=== PATIENT | male | born 1975 | race Caucasian/White ===

== ENCOUNTER 2016-10-19 00:57 | Emergency (ER) | payer BC ==
[2016-10-19] MEDS ORDERED: ASPIRIN 81 MG TABLET, CHEWABLE PO ONE (01:27)
--- NOTE | 2016-10-19 01:30 | ER Document Report ---
ED Medical Screen (RME) - General Stated Complaint: CHEST PAIN Notes: 41 year old male that comes to the ED for chief complaint of chest pain, started 21:30 while preparing to visit in hospital, chest pain in left side , radiates to left shoulder, denies shortness of breath or N/V. Still present but feels improved. Took [facility] at home. Former smoker. Denies family history of MS. PMH of anxiety, medicated. TRAVEL OUTSIDE OF THE [place] IN LAST 30 DAYS: No - Related Data Allergies/Adverse Reactions: No Known Allergies Allergy (Verified 10/19/16 01:26) Past Medical History Psychiatric Medical History: Reports: Hx Anxiety, Hx Post Traumatic Stress Disorder Past Surgical History: Reports: Hx Oral Surgery - [place] teeth, Hx Tonsillectomy - Immunizations Hx Diphtheria, Pertussis, Tetanus Vaccination: Yes Physical Exam - Vital signs Vitals: Temp Pulse Resp BP Pulse Ox 98.3 F 89 16 134/89 H 96 10/19/16 01:19 10/19/16 01:19 10/19/16 01:19 10/19/16 01:19 10/19/16 01:19 - Respiratory Respiratory status: No respiratory distress Chest status: Nontender. No: Tender Breath sounds: Normal - Abdominal Inspection: Normal Tenderness: Nontender Course - Vital Signs Vital signs: Temp Pulse Resp BP Pulse Ox 98.3 F 89 16 134/89 H 96 10/19/16 01:19 10/19/16 01:19 10/19/16 01:19 10/19/16 01:19 10/19/16 01:19
[2016-10-19 02:19] LABS: ABSOLUTE MONOCYTES (AUTO) 2.2 10^3/uL (0.1-1.4); ABSOLUTE NEUT (AUTO) 15.5 10^3/uL (1.7-8.2); BASOPHILS % (AUTO) 0.2 % (0-2); EOSINOPHILS % (AUTO) 0.1 % (0-6); HEMATOCRIT 45.4 % (37.9-51.0); HEMOGLOBIN 15.3 g/dL (13.5-17.0); HGB HCT DIFFERENCE 0.5; LYMPHOCYTES % (AUTO) 5.4 % (13-45); MEAN CORPUSCULAR HEMOGLOBIN 30.9 pg (27.0-33.4); MEAN CORPUSCULAR HGB CONC 33.6 g/dL (32.0-36.0); MEAN CORPUSCULAR VOLUME 92 fl (80-97); MONOCYTES % (AUTO) 11.7 % (3-13); RED BLOOD COUNT 4.95 10^6/uL (4.35-5.55); RED CELL DISTRIBUTION WIDTH 16.2 % (11.5-14.0); SEGMENTED NEUTROPHILS % (AUTO) 82.6 % (42-78); WHITE BLOOD COUNT 18.8 10^3/uL (4.0-10.5)
[2016-10-19 02:38] LABS: ALANINE AMINOTRANSFERASE 44 U/L (21-72); ALBUMIN 4.3 g/dL (3.5-5.0); ALKALINE PHOSPHATASE 102 U/L (38-126); ANION GAP 12 (5-19); ASPARTATE AMINO TRANSFERASE 26 U/L (17-59); BILIRUBIN,DIRECT 0.3 mg/dL (0.0-0.4); BILIRUBIN,TOTAL 0.7 mg/dL (0.2-1.3); BLOOD UREA NITROGEN 20 mg/dL (7-20); CALCIUM 9.7 mg/dL (8.4-10.2); CARBON DIOXIDE 27 mmol/L (22-30); CHLORIDE 103 mmol/L (98-107); CREATINE KINASE 205 U/L (55-170); CREATININE RESULT 0.91 mg/dL (0.52-1.25); GLUCOSE 120 mg/dL (75-110); POTASSIUM 4.2 mmol/L (3.6-5.0); TOTAL PROTEIN 7.1 g/dL (6.3-8.2)
[2016-10-19 02:52] LABS: CREATINE KINASE MB 3.26 ng/mL (<4.55)
[2016-10-19 02:56] LABS: TROPONIN I 0.905 ng/mL
[2016-10-19] MEDS ORDERED: NITROGLYCERIN 0.4 MG/TAB 25 TAB/BOTTLE SL PRN (03:33)
--- NOTE | 2016-10-19 03:36 | ER Document Report ---
Addendum entered and electronically signed by DEE SMITH PA 10/19/16 06:35: Critical Care Note - Critical Care Note Total time excluding time spent on procedures (mins): 40 - elevated troponin, chest pain, ST elevation Comments: Please allow 40 minutes of critical care time for evaluation and treatment of patient with chest pain, elevated troponin, consultation with Cardiology and tertiary care center, treatments with ASA, lovenox, nitroglycerine including nitroglycerine drip, multiple re-evaluations. Addendum entered and electronically signed by DEE SMITH PA 10/19/16 06:34: Physical Exam - Vital signs Vitals: Temp Pulse Resp BP Pulse Ox 98.3 F 89 16 134/89 H 96 10/19/16 01:19 10/19/16 01:19 10/19/16 01:19 10/19/16 01:19 10/19/16 01:19 Interpretation: Normal - General General appearance: Appears well, Alert In distress: None - HEENT Head: Normocephalic, Atraumatic Eyes: Normal Conjunctiva: Normal Extraocular movements intact: Yes Eyelashes: Normal Pupils: PERRL Nasal: Normal Mouth/Lips: Normal Mucous membranes: Normal Pharynx: Normal Neck: Normal - Respiratory Respiratory status: No respiratory distress Chest status: Nontender. No: Tender Breath sounds: Normal. No: Nonproductive cough, Rales, Rhonchi, Stridor, Wheezing Chest palpation: Normal - Cardiovascular Rhythm: Regular. No: Irregularly irregular, Extrasystoles, Tachycardia, Bradycardia Heart sounds: Normal auscultation, S1 appreciated, S2 appreciated Murmur: No - Abdominal Inspection: Normal Distension: No distension Bowel sounds: Normal Tenderness: Nontender. No: Tender, Guarding Organomegaly: No organomegaly - Back Back: Normal, Nontender - Extremities General upper extremity: Normal inspection, Nontender, Normal color, Normal ROM , Normal temperature General lower extremity: Normal inspection, Nontender, Normal color, Normal ROM , Normal temperature, Normal weight bearing. No: Senthil's sign - Neurological Neuro grossly intact: Yes Cognition: Normal Orientation: AAOx4 Stearns Coma Scale Eye Opening: Spontaneous Stearns Coma Scale Verbal: Oriented Felicia Coma Scale Motor: Obeys Commands Felicia Coma Scale Total: 15 Speech: Normal Motor strength normal: LUE, RUE, LLE, RLE Sensory: Normal - Psychological Associated symptoms: Normal affect, Normal mood - Skin Skin Temperature: Warm Skin Moisture: Dry Skin Color: Normal Addendum entered and electronically signed by DEE SMITH PA 10/19/16 06:33: Review of Systems - Review of Systems Constitutional: No symptoms reported EENT: No symptoms reported Cardiovascular: See HPI Respiratory: See HPI Gastrointestinal: See HPI Genitourinary: No symptoms reported Male Genitourinary: No symptoms reported Musculoskeletal: No symptoms reported Skin: No symptoms reported Hematologic/Lymphatic: No symptoms reported Neurological/Psychological: No symptoms reported Addendum entered and electronically signed by DEE SMITH PA 10/19/16 06:32: Course - Re-evaluation Re-evalutation: Chest x-ray unremarkable. CBC shows leukocytosis with no neutrophilic shift, patient denies cough, fever/chills, or recent sick symptoms. Troponin elevated at 0.9, concern for NSTEMI. Patient initially with chest pain radiating to left shoulder, reported improved at triage, however when I evaluated him at bedside in the room he complained of pain again. Given lovenox , ASA, giving nitroglycerine now. Repeat EKG performed. Discussed with Dr. Álvarez. Repeat EKG concerning for ST elevations, worse compared to prior, present in I, II, aVL, and V6. 1-2 mm. Patient now stating his pain is when he breathes in. Call had been made to [facility] for transfer at 03:55 AM, when they called spoke with cardiology nuclear operations specialist, informed them of updates. Dr. Álvarez had been to bedside, spoke to them. Dr. Álvarez performed cardiac ultrasound at bedside, no effusion noted. Patient not tachycardic, hypotensive or in distress. Ordering nitroglycerine drip with no significant improvement with SL. 04:[address] Álvarez discussed with interventional cardiology Dr. Henson, texted EKG to him, recommends transfer but TPA not indicated at this time due to risk of pericardial effusion and hemorrhage with tamponade. 05:00 AM Helicopter arrived, patient unchanged from prior, still well appearing, vital signs in normal ranges. No current complaints. Stable for discharge. - Vital Signs Vital signs: Temp Pulse Resp BP Pulse Ox 98.3 F 89 17 120/86 H 97 10/19/16 01:19 10/19/16 01:19 10/19/16 04:45 10/19/16 04:45 10/19/16 04:45 - Laboratory Result Diagrams: 10/19/16 01:53 10/19/16 01:53 Laboratory results interpreted by me: 10/19/16 10/19/16 01:53 01:53 WBC 18.8 H RDW 16.2 H Seg Neutrophils % 82.6 H Lymphocytes % 5.4 L Absolute Neutrophils 15.5 H Absolute Monocytes 2.2 H Glucose 120 H Creatine Kinase 205 H Original Note: ED Cardiac - General Time seen by provider: 03:30 TRAVEL OUTSIDE OF THE [place] IN LAST 30 DAYS: No <DEE SMITH - Last Filed: 10/19/16 04:31> <JORGE ÁLVAREZ - Last Filed: 10/19/16 04:55> - General Chief Complaint: Chest Pain Stated Complaint: CHEST PAIN Notes: Patient is a 41 year old male that comes to the ED for chief complaint of chest pain, started 21:30 while preparing to leave his house to visit his in hospital, chest pain in left side, radiates to left shoulder, denies shortness of breath or N/V. Still present but feels improved. Took [facility] at home. Former smoker. Denies family history of [place]. PMH of anxiety, medicated. (DEE SMITH) - Related Data Allergies/Adverse Reactions: No Known Allergies Allergy (Verified 10/19/16 01:26) Past Medical History - Social History Smoking Status: Never Smoker Chew tobacco use (# tins/day): No Frequency of alcohol use: Social Drug Abuse: None Family History: Other - Patient states he does not know family history Patient has suicidal ideation: No Patient has homicidal ideation: No Renal/ Medical History: Denies: Hx Peritoneal Dialysis Psychiatric Medical History: Reports: Hx Anxiety, Hx Post Traumatic Stress Disorder Past Surgical History: Reports: Hx Oral Surgery - [place] teeth, Hx Tonsillectomy - Immunizations Hx Diphtheria, Pertussis, Tetanus Vaccination: Yes <DEE SMITH - Last Filed: 10/19/16 04:31> Course - Laboratory Result Diagrams: 10/19/16 01:53 10/19/16 01:53 <DEE SMITH - Last Filed: 10/19/16 04:31> - Laboratory Result Diagrams: 10/19/16 01:53 10/19/16 01:53 <JORGE ÁLVAREZ - Last Filed: 10/19/16 04:55> - Re-evaluation Re-evalutation: EKG with no significant ST elevations or depressions, no T-wave inversions in consecutive leads, patient given aspirin, states he feels improved from initially. Troponin is elevated at 0.9, On reevaluation patient states he's her starting to have some pain again (DEE SMITH) 10/19/16 04:53 Patient is being worked up by the physician's emergency veterinary assistant, Dee Garcia. You diagnosed with a non-STEMI based on elevated troponin and ongoing chest pain. Patient started having repeat chest pain and therefore get repeat EKG which was shown to me. EKG showed concave up ST segment elevation which was worse in comparison to his previous EKG. He had some ST segment depression in aVR but this was unchanged. There may be some slight NE depression. ST segment elevation was not diffuse. He did have the elevated troponin. This is either related to a STEMI or more likely a pericarditis/ myocarditis. He's had no recent viral prodrome. No runny nose cough congestion or fever. His pain is slightly pleuritic. Was initially worse with lying flat but no longer is a case now. He does have some pain to raise into his left arm which lobe atypical. I did perform a bedside ultrasound showed no evidence of a pericardial effusion. I did speak with the process description writer at [facility], Dr. Henson, who reviewed EKG. He feels that it is most likely a pericarditis. He does not want to call the code STEMI at this time. He requested we transfer the patient to their facility so they can do further workup in regards to his pain. I did explain the situation to the patient and he is agreeable to it. Patient will be transferred. No murmur on auscultation. Lungs are clear. Vital signs are stable. Dictation of this chart was performed using voice recognition software; therefore, there may be some unintended grammatical errors. (JORGE ÁLVAREZ) - Vital Signs Vital signs: Temp Pulse Resp BP Pulse Ox 98.3 F 89 17 120/86 H 97 10/19/16 01:19 10/19/16 01:19 10/19/16 04:45 10/19/16 04:45 10/19/16 04:45 - Laboratory Laboratory results interpreted by me: 10/19/16 10/19/16 01:53 01:53 WBC 18.8 H RDW 16.2 H Seg Neutrophils % 82.6 H Lymphocytes % 5.4 L Absolute Neutrophils 15.5 H Absolute Monocytes 2.2 H Glucose 120 H Creatine Kinase 205 H
[2016-10-19] MEDS ORDERED: ENOXAPARIN SODIUM INJ 120 MG/0.8 ML DISP.SYRIN SUBCUT SCH (03:45)
[2016-10-19] MEDS ORDERED: KETOROLAC TROMETHAMINE INJ/PF 30 MG/1 ML SDV IV ONE (04:16)
[2016-10-19] MEDS ORDERED: NITROGLYCERIN/D5W 250 ML IV PRN (04:20)
[2016-10-19 04:51] VITALS: BP 120/86
--- NOTE | 2016-10-19 08:16 | EKG REPORT ---
SEVERITY:- ABNORMAL ECG - SINUS RHYTHM ST ELEVATION SUGGESTS PERICARDITIS : Confirmed by: Khadar Leung MD 19-Oct-2016 08:15:17
--- NOTE | 2016-10-19 08:16 | EKG REPORT ---
SEVERITY:- NORMAL ECG - SINUS RHYTHM ST ELEV, PROBABLE NORMAL EARLY REPOL PATTERN : Confirmed by: Khadar Leung MD 19-Oct-2016 08:15:31
== END 2016-10-19 05:04 | disposition short-term general hospital (02) ==
LOC: ER 00:57
DX: R07.1 Chest pain on breathing (principal); R74.8 Abnormal levels of other serum enzymes; R94.31 Abnormal electrocardiogram [ECG] [EKG]; D72.829 Elevated white blood cell count, unspecified
CPT/HCPCS: 93005; 99291; 96372; 96375; 96365; 36415; 82553; 82550; 85025; 80053; 84484; 71010; 93010; J1650; J1885; J3490

== ENCOUNTER 2017-02-05 19:45 | Emergency (ER) | payer BC | END 2017-02-05 20:58 | disposition left against medical advice (07) | LOC: ER 19:45 | DX: Z53.9 Procedure and treatment not carried out, unspecified reason (principal); F41.9 Anxiety disorder, unspecified ==